=== PATIENT | male | born 1960 | race Caucasian/White ===

== ENCOUNTER 2017-03-11 08:18 | Emergency (ER) | payer BC ==
[~2017-03-11 08:18] MED LIST: ALEVE220 MG PO; CENTRUM CARD1 TABLET PO; VICODIN,LORT1 TABLET PO; ZOFRAN ODT4 MG PO
[2017-03-11] MEDS ORDERED: NORVASC5 MG PO (09:31)
[2017-03-11 11:29] VITALS: BP 191/98
== END 2017-03-11 11:30 | disposition home or self-care (01) ==
LOC: EME 08:18
DX: S83.91XA Sprain of unspecified site of right knee, initial encounter (principal); Y99.0 Civilian activity done for income or pay; X50.1XXA Overexertion from prolonged static or awkward postures, initial encounter
CPT/HCPCS: 73564; 99281; 99283

== ENCOUNTER → 2017-05-28 | Outpatient (CLI) | payer BC ==
[~2017-05-28] MED LIST changes: +NORVASC5 MG PO
== END | disposition home or self-care (01) ==
LOC: CDC 08:25
DX: R94.31 Abnormal electrocardiogram [ECG] [EKG] (principal)
CPT/HCPCS: 93000